=== PATIENT | male | born 1955 | race Two or more races ===

== ENCOUNTER → 2024-08-30 14:59 | Outpatient (REF) | payer MEDICARE, OTHER, SELFPAY | LOC: EMG 14:59 | PROVIDERS: ATTENDING PHYSICIAN Family Medicine; FAMILY PHYSICIAN Internal Medicine | DX: G62.9 Polyneuropathy, unspecified (principal); R20.0 Anesthesia of skin | CPT/HCPCS: 95886; 95911 ==